=== PATIENT | male | born 1930 | race Caucasian/White ===

== ENCOUNTER 2016-10-03 16:35 | Emergency (ER) | payer SELFPAY ==
[~2016-10-03] VITALS: Ht 162.6 cm; Wt 73.0 kg
[2016-10-03] MEDS ORDERED: CRESTOR20 MG PO (19:33)
[2016-10-03] MEDS ORDERED: ASPIRIN 81 LOW81 MG PO (19:34)
[2016-10-03 20:17] VITALS: BP 138/72
== END 2016-10-03 20:20 | disposition home or self-care (01) | DRG 125 ==
LOC: ED 16:35
PROC: 0HQ1XZZ Repair Face Skin, External Approach (ICD-10-PCS; principal; 2016-10-03)
DX: S01.111A Laceration without foreign body of right eyelid and periocular area, initial encounter (principal); W31.89XA Contact with other specified machinery, initial encounter; Y93.89 Activity, other specified; Y92.009 Unspecified place in unspecified non-institutional (private) residence as the place of occurrence of the external cause